=== PATIENT | female | born 1995 | race Caucasian/White ===

== ENCOUNTER 2018-12-04 01:42 | Emergency (ER) | payer OTHER ==
[~2018-12-04] VITALS: Ht 157 cm; Wt 89.5 kg
[2018-12-04] MEDS ORDERED: LACTATED RINGERS 1,000 ML IV ONE (02:25)
[2018-12-04] MEDS ORDERED: ONDANSETRON 4 MG/2 ML (SDV) Z0FRAN IVP ONE (02:30)
[2018-12-04 02:31] LABS: BILIRUBIN,URINE NEGATIVE (NEGATIVE); CLARITY,URINE CLEAR; COLOR,URINE YELLOW; GLUCOSE, URINE (UA) NEGATIVE (NEGATIVE); KETONES,URINE NEGATIVE (NEGATIVE); LEUKOCYTE ESTERASE ,URINE NEGATIVE (NEGATIVE); NITRITE,URINE NEGATIVE (NEGATIVE); PH,URINE 6.5 (5-9); PROTEIN,URINE 1+ (NEGATIVE)
[2018-12-04 02:40] LABS: BACTERIA,URINE NEGATIVE /HPF; RBC,URINE 0-2 /HPF
[2018-12-04 02:50] LABS: AMPHETAMINE SCREEN, URINE NEGATIVE (NEGATIVE); BARBITURATE SCREEN URINE NEGATIVE (NEGATIVE); BENZODIAZEPINES SCREEN URINE NEGATIVE (NEGATIVE); CANNABINOID SCREEN, URINE POSITIVE (NEGATIVE); COCAINE SCREEN URINE NEGATIVE (NEGATIVE); METHADONE STAT NEGATIVE (NEGATIVE); METHAMPHETAMINE SCREEN URINE S NEGATIVE (NEGATIVE); OPIATE SCREEN URINE NEGATIVE (NEGATIVE); OXYCODONE STAT NEGATIVE (NEGATIVE); PROPOXYPHENE STAT NEGATIVE (NEGATIVE); TRICYCLIC ANTIDEPRESSANTS SCRE NEGATIVE (NEGATIVE)
--- NOTE | 2018-12-04 02:50 | NUR ---
DURING TRIAGE PT DENIED RECREATIONAL DRUG USE, INCLUDING MARIJUANA. DURING PLACEMENT OF IV, THE MOTHER OF THE PT STATES, "I KNOW SHE TOLD YOU SHE DIDN'T SMOKE POT, BUT I TOLD HER TO BE HONEST AND TELL THE DOCTOR THE TRUTH. SO I JUST WANT TO APOLOGIZE". THE MOTHER APOLOGIZED MULTIPLE TIMES DURING IV INSERTION AND MEDICATION ADMINISTRATION AND STATED, "WE AREN'T LIARS, SO I JUST WANTED TO SAY SORRY FOR NOT HER NOT TELLING THE TRUTH." PT ALSO APOLOGIZED FOR NOT BEING FORTHCOMING ABOUT MARIJUANA USE. MOTHER AT BEDSIDE APPEARS VERY ANXIOUS ALSO NOTED TO INTERJECT AND ANSWER QUESTIONS BEFORE THE PT HAS THE CHANCE TO ANSWER.
--- NOTE | 2018-12-04 02:55 | ED GI ---
General Chief Complaint: Abdominal/GI Problems Stated Complaint: VOMITING; DIAHRREA Nursing Triage Note: AMBULATORY TO ED ROOM 6 WITH C/O ABD PAIN. PT STATES N/V/D X6 MONTHS, BRAND[place] 3 MONTHS AGO IN [place], [place]. STATES HAS GONE TO HOSPITAL 4 TIMES IN THE LAST MONTH IN [place] (WHERE SHE LIVES) FOR SAME SYMPTOMS AND BEEN DIAGNOSED WITH COLITIS, IBS AND THEN C DIFF FROM TAKING MANY ANTIBIOTICS. HAS NOT SEEN A PCP. HAS APPT 02/08 WITH SPECIALIST IN [place]. MOTHER AT BEDSIDE AND ANSWERING QUESTIONS WITH PT. Sepsis Screen: No Definite Risk Source of Information: Patient, Family (MOM) History of Present Illness Date Seen by Provider: Dec 04, 2018 Time Seen by Provider: 02:20 Initial Comments PT ARRIVES VIA POV WITH MOM AND A MALE PT STATES SHE HAS HAD NAUSEA/VOMITING/DIARRHEA AND ABDOMINAL PAIN FOR 6 MONTHS PT STATES SHE "CAN'T KEEP ANYTHING DOWN" FOR THE LAST 6 MONTHS STATES SHE HAS VOMITED X 5-6 TODAY, AND HAS HAD DIARRHEA AT LEAST 10 TIMES TODAY NO BLACK/BLOODY/TARRY STOOLS STATES SHE HAS A CONSTANT PAIN ON THE LEFT SIDE OF HER ABDOMEN--STATES IT IS CONSTANT AND DULL AND SHARP SOMETIMES, AND IT DOESN'T GO AWAY, LATER STATES PAIN IS IN DIFFERENT AREAS OF ABDOMEN AT DIFFERENT TIMES. STATES IT IS IN LEFT UPPER ABDOMEN NOW. NO FEVER NO URINARY PROBLEMS AND IS VOIDING A NORMAL NUMBER OF TIMES SYMPTOMS ARE NO DIFFERENT TODAY/TONIGHT IN ANY WAY PT CAME HERE FROM [place] AND MOM BROUGHT HER HERE "BECAUSE NO ONE CAN FIGURE OUT WHAT'S WRONG WITH HER" PT HAS BEEN TO A MULTITUDE OF FACILITIES, SEEN A MULTITUDE OF DIFFERENT PHYSICIANS, AND HAD A MULTITUDE OF TESTS FOR THIS PROBLEM PT STATES SHE HAS BEEN TO 4 DIFFERENT HOSPITALS IN THE LAST MONTH FOR THIS PROBLEM, INCLUDING BOTH [facility] IN [place] AND [facility] IN [place] IN THE LAST MONTH--ALL FOR THIS SAME COMPLAINT. HAS BEEN TO MULTIPLE FACILITIES IN [facility] STATES SHE WAS HOSPITALIZED IN [facility] FOR 2 WEEKS, ABOUT 4 MONTHS AGO, FOR THIS PROBLEM, SHE EVENTUALLY HAD HER GALLBLADDER REMOVED ABOUT 4 MONTHS AGO, IN HOPES OF RELIEVING HER SYMPTOMS. PT STATES SHE HAD EGD AND COLONOSCOPY IN [place], WHICH WAS REPORTEDLY NORMAL. PT STATES HER SYMPTOMS HAVE NOT GOTTEN ANY BETTER SINCE SHE HAD HER GALLBLADDER OUT. PT STATES SHE HAS SINCE MOVED TO [place] AND HAS BEEN SEEN MULTIPLE TIMES AT LOCAL ER'S IN THAT AREA. PT STATES SHE HAS NOT BEEN ADMITTED TO THE HOSPITAL SINCE SHE WAS AT [place]. HAS BEEN SEEN IN ER AND THEN SENT HOME. SHE STATES THAT A COUPLE OF WEEKS AGO, SHE WAS DX WITH C. DIFFICILE AND PRESCRIBED VANCOMYCIN ON 11/20/18--PT HAS NOT BEEN TAKING IT, STATING SHE "CAN'T KEEP IT DOWN" PT STATES SHE HAS BEEN REFERRED TO GI SPECIALIST IN [place], AND HAS AN APPOINTMENT 02/08/19--DOES NOT KNOW NAME OF OR WHICH HOSPITAL SYSTEM HE IS WITH. STATES THE LAST TIME SHE WAS SEEN WAS A WEEK AGO AT [facility] IN [place]. STATES SHE ALSO TESTED + FOR C. DIFFICILE AT THAT TIME ( HAD ALREADY BEEN DX A COUPLE OF WEEKS AGO, AND PRESCRIBED MEDICATION, BUT HAD NOT BEEN TAKING IT) PT STATES SHE HAS BEEN DX WITH COLITIS, IBS, WELL THE C. DIFFICILE AT VARIOUS FACILITIES PT HAS NOT ATTEMPTED TO ESTABLISH WITH PCP ANYWHERE, JUST KEEPS GOING TO MULTIPLE ER'S AND NOT FOLLOWING UP WITH ANYONE. PT HAS BEEN PRESCRIBED A MULTITUDE OF GI MEDICATIONS, STATES SHE "CAN'T KEEP THEM DOWN" HAS BEEN PRESCRIBED: OMPRAZOLE ON 08/08/18--NOT TAKING HYOSCYAMINE 0.125 MG ON 11/04/18 PROMETHAZINE 25 MG ON 11/04/18 DICYCLOMINE ON 11/16/18 PROCHLORPERAZINE 10 MG TABS ON 11/16/18 PROCHLORPERAZINE 25 MG SUPP ON 11/20/18 PROMETHAZINE 25 MG SUPP ON 11/28/18 ONDANSETRON 4 MG ON 11/28/18. WAS PRESCRIBED VANCOMYCIN 11/20/18 PT ALSO ADMITS TO SMOKING MARIJUANA ON DAILY BASIS --STATES "IT'S THE ONLY THING THAT MAKES THE SYMPTOMS GO AWAY" THEN STATES SOON IT WEARS OFF, OR SHE GOES TOO LONG BETWEEN USING, ALL OF HER SYMPTOMS IMMEDIATELY COME BACK AND GET WORSE EACH TIME. Allergies and Home Medications Allergies Coded Allergies: Penicillins (Verified Allergy, Unknown, 12/04/18) STATES SHE IS NOT ALLERGIC--IS NOT SURE SHE HAS EVER EVEN HAD IT. HER DAD IS ALLERGIC TO PENICILLIN. Home Medications Lactobacillus Acidophilus 1 Each Capsule, 2 EACH PO QID Prescribed by: RAHEEL CABRERA on 12/04/18 0503 Pantoprazole Sodium 40 Mg Tablet.dr, 40 MG PO DAILY Prescribed by: RAHEEL CABRERA on 12/04/18 0505 Scopolamine 1 Each Patch.td72, 1 EACH TD Q72 HOURS Prescribed by: RAHEEL CABRERA on 12/04/18 0355 Patient Home Medication List Home Medication List Reviewed: Yes Review of Systems Review of Systems Constitutional: no symptoms reported; No dizziness, No fever, No malaise, No weakness EENTM: No Symptoms Reported Respiratory: No Symptoms Reported Cardiovascular: No Symptoms Reported Gastrointestinal: See HPI, Abdominal Pain, Diarrhea, Nausea, Poor Appetite, Poor Fluid Intake, Vomiting Genitourinary: No Symptoms Reported, Other (LMP 11/29/18--STILL ON HER PERIOD. NO CONTROL. STATES IT CAME 10 DAYS EARLY. ) Musculoskeletal: no symptoms reported Skin: no symptoms reported Psychiatric/Neurological: No Symptoms Reported Endocrine: No Symptoms Reported Hematologic/Lymphatic: No Symptoms Reported Past Bvqggff-[id number]-Mhyfcj Hx Patient Social History Alcohol Use: Denies Use Recreational Drug Use: Yes (THC DAILY) Drug of Choice: THC DAILY Smoking Status: Current Everyday Smoker (1/2 PPD) Type Used: Cigarettes Recent Foreign Travel: No Contact w/Someone Who Travel: No Recent Infectious Disease Expo: No Recent Hopitalizations: No Physical Abuse: No Sexual Abuse: No Mistreated: No Fear: No Seasonal Allergies Seasonal Allergies: No Past Medical History Surgeries: Yes (LEFT TIB/FIB FX/ORIF; EGD/ COLONOSCOPY) Gallbladder, Orthopedic Respiratory: No Cardiac: No Neurological: No : No Reproductive Disorders: No Female Reproductive Disorders: Denies Genitourinary: No Gastrointestinal: Yes (ONGOING NAUSEA/VOMITING/DIARRHEA/ABDOMINAL PAIN FOR OVER 6 MONTHS, PER PT ON 12/04/18; S/P CHOLECYSTECTOMY; DX WITH C. DIFFICILE 11/2018) Colitis, C-Diff, Gall Bladder Disease, Irritable Bowel Musculoskeletal: Yes (LEFT TIB/FIB FX/ORIF) Fractures Endocrine: No HEENT: No Cancer: No Psychosocial: No Integumentary: No Blood Disorders: No Physical Exam Vital Signs Vital Signs - First Documented 12/04/18 12/04/18 02:13 05:20 Temp 36.9 Pulse 87 Resp 18 B/P (MAP) 125/98 (107) Pulse Ox 100 O2 Delivery Room Air Capillary Refill : Less Than 3 Seconds Height/Weight/BMI Height: '" Weight: lbs. oz. kg; 36.00 BMI Method: General Appearance: no apparent distress, obese, other (WALKS UPRIGHT AND MOVES WITHOUT DIFFICULTY. SITTING UP, SRI LANKAN-STYLE, TEXTING/PLAYING ON PHONE. DOES NOT APPEAR TO BE IN ANY DISCOMFORT OR DISTRESS WHATSOEVER. 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, no motor/sensory deficits, alert, normal mood/affect, oriented x 3 Skin: normal color, warm/dry Progress/Results/Core Measures Results/Orders Lab Results Laboratory Tests Test 12/04/18 02:25 12/04/18 02:50 Range/Units Urine Color YELLOW Urine Clarity CLEAR Urine pH 6.5 5-9 Urine Specific [place] 1.015 L 1.016-1.022 Urine Protein 1+ H NEGATIVE Urine Glucose (UA) NEGATIVE NEGATIVE Urine Ketones NEGATIVE NEGATIVE Urine Nitrite NEGATIVE NEGATIVE Urine Bilirubin NEGATIVE NEGATIVE Urine Urobilinogen NORMAL NORMAL MG/DL Urine Leukocyte Esterase NEGATIVE NEGATIVE Urine RBC (Auto) 1+ H NEGATIVE Urine RBC 0-2 /HPF Urine WBC NONE /HPF Urine Squamous Epithelial Cells 10-25 H /HPF Urine Crystals NONE /LPF Urine Bacteria NEGATIVE /HPF Urine Casts NONE /LPF Urine Mucus LARGE H /LPF Urine Culture Indicated NO Urine Opiates Screen NEGATIVE NEGATIVE Urine Oxycodone Screen NEGATIVE NEGATIVE Urine Methadone Screen NEGATIVE NEGATIVE Urine Propoxyphene Screen NEGATIVE NEGATIVE Urine Barbiturates Screen NEGATIVE NEGATIVE Ur Tricyclic Antidepressants Screen NEGATIVE NEGATIVE Urine Phencyclidine Screen NEGATIVE NEGATIVE Urine Amphetamines Screen NEGATIVE NEGATIVE Urine Methamphetamines Screen NEGATIVE NEGATIVE Urine Benzodiazepines Screen NEGATIVE NEGATIVE Urine Cocaine Screen NEGATIVE NEGATIVE Urine Cannabinoids Screen POSITIVE H NEGATIVE White Blood Count 11.9 H 4.3-11.0 10^3/uL Red Blood Count 5.49 4.35-5.85 10^6/uL Hemoglobin 15.0 11.5-16.0 G/DL Hematocrit 44 35-52 % Mean Corpuscular Volume 80 80-99 FL Mean Corpuscular Hemoglobin 27 25-34 PG Mean Corpuscular Hemoglobin Concent 34 32-36 G/DL Red Cell Distribution Width 13.6 10.0-14.5 % Platelet Count 350 130-400 10^3/uL Mean Platelet Volume 10.0 7.4-10.4 FL Neutrophils (%) (Auto) 70 42-75 % Lymphocytes (%) (Auto) 21 12-44 % Monocytes (%) (Auto) 6 0-12 % Eosinophils (%) (Auto) 2 0-10 % Basophils (%) (Auto) 0 0-10 % Neutrophils # (Auto) 8.4 H 1.8-7.8 X 10^3 Lymphocytes # (Auto) 2.5 1.0-4.0 X 10^3 Monocytes # (Auto) 0.8 0.0-1.0 X 10^3 Eosinophils # (Auto) 0.2 0.0-0.3 10^3/uL Basophils # (Auto) 0.0 0.0-0.1 10^3/uL Sodium Level 138 135-145 MMOL/L Potassium Level 4.2 3.6-5.0 MMOL/L Chloride Level 103 98-107 MMOL/L Carbon Dioxide Level 24 21-32 MMOL/L Anion Gap 11 5-14 MMOL/L Blood Urea Nitrogen 11 7-18 MG/DL Creatinine 0.75 0.60-1.30 MG/DL Estimat Glomerular Filtration Rate > 60 BUN/Creatinine Ratio 15 Glucose Level 85 70-105 MG/DL Calcium Level 9.6 8.5-10.1 MG/DL Corrected Calcium 8.5-10.1 MG/DL Magnesium Level 2.0 1.6-2.4 MG/DL Total Bilirubin 0.4 0.1-1.0 MG/DL Aspartate Amino Transf (AST/SGOT) 28 5-34 U/L Alanine Aminotransferase (ALT/SGPT) 44 0-55 U/L Alkaline Phosphatase 96 40-136 U/L Total Protein 7.9 6.4-8.2 GM/DL Albumin 4.7 H 3.2-4.5 GM/DL Amylase Level 33 25-125 U/L Lipase 15 8-78 U/L Serum Alcohol < 10 <10 MG/DL My Orders Orders - RAHEEL CABRERA DO Ed Iv/Invasive Line Start (12/04/18 02:21) Urine Bedside (12/04/18 02:21) Amylase (12/04/18 02:21) Cbc With Automated Diff (12/04/18 02:21) Comprehensive Metabolic Panel (12/04/18 02:21) Lipase (12/04/18 02:21) Ua Culture If Indicated (12/04/18 02:21) Ondansetron Injection (Zofran Injectio (12/04/18 02:30) Ed Iv/Invasive Line Start (12/04/18 02:25) Lactated Ringers (Lr 1000 Ml Iv Solution (12/04/18 02:25) Alcohol (12/04/18 02:25) Drug Screen Stat (Urine) (12/04/18 02:25) Magnesium (12/04/18 02:25) Ct Abdomen/Pelvis W (12/04/18 03:09) Acute Abd Series (12/04/18 03:09) Iohexol Injection (Omnipaque 350 Mg/Ml 1 (12/04/18 04:00) Ns (Ivpb) (Sodium Chloride 0.9% Ivpb Bag (12/04/18 04:00) Ketorolac Injection (Toradol Injection) (12/04/18 05:00) Medications Given in ED Current Medications Medications Dose Ordered Sig/Alysa Route Start Time Stop Time Status Last Admin Dose Admin Iohexol 80 ml ONCE ONCE IV 12/04/18 04:00 12/04/18 04:54 DC 12/04/18 03:58 80 ML Ketorolac Tromethamine 30 mg ONCE ONCE IVP 12/04/18 05:00 12/04/18 05:01 DC 12/04/18 05:05 30 MG Lactated Ringer's 1,000 ml @ 0 mls/hr Q0M ONCE IV 12/04/18 02:25 12/04/18 02:27 DC 12/04/18 02:53 999 MLS/HR Ondansetron HCl 4 mg ONCE ONCE IVP 12/04/18 02:30 12/04/18 02:31 DC 12/04/18 02:53 4 MG Sodium Chloride 50 ml ONCE ONCE IV 12/04/18 04:00 12/04/18 04:54 DC 12/04/18 03:58 50 ML Vital Signs/I&O 12/04/18 12/04/18 02:13 05:20 Temp 36.9 36.9 Pulse 87 72 Resp 18 18 B/P (MAP) 125/98 (107) 118/68 (107) Pulse Ox 100 O2 Delivery Room Air Room Air Blood Pressure Mean: 107 Progress Progress Note : Progress Note NO VOMITING OR DIARRHEA DURING ENTIRE ER STAY DID NOT COMPLAIN OF PAIN, UNTIL SHORTLY PRIOR TO DISMISSAL--WANTING PAIN MED ICATION BEFORE SHE LEAVES ALSO STATES SHE IS HERE FOR A WORK NOTE, SHE DID NOT GO TO WORK YESTERDAY ( SHE CAME HERE TO [place] INSTEAD) AND WILL NOT BE GOING TO WORK TODAY EITHER, SHE IS GOING TO STAY HERE IN [place] TODAY. PT SITTING UPRIGHT SRI LANKAN-STYLE, PLAYING/TEXTING ON PHONE DURING ER STAY. PT WALKS UPRIGHT AND MOVES QUICKLY AND DOES NOT APPEAR TO BE IN ANY DISCOMFORT OR DISTRESS AT ANY TIME. DISCUSSED WITH PT THE IMPORTANCE OF ESTABLISHING WITH A PRIMARY CARE DR, AND PREFERABLY ONE THAT IS IN SAME HOSPITAL SYSTEM THAT THE GI DR. SHE HAS BEEN REFERRED TO. PT ADVISED THAT SHE SHOULD STICK WITH ONE HOSPITAL SYSTEM, SHE HAS HAD A MULTITUDE OF RADIOLOGICAL STUDIES, INCLUDING CT SCANS, BECAUSE SHE HAS GONE TO A MULTITUDE OF DIFFERENT FACILITIES, THAT DO NOT HAVE ACCESS TO ANY TESTS DONE AT OTHER FACILITIES. STRONGLY ADVISED OF RISKS OF RADIATION EXPOSURE WITH EACH CT SCAN SHE GETS. AND INCREASED RISK FOR CANCERS LATER IN LIFE DUE TO THIS. PT ADVISED OF THE IMPORTANCE OF TAKING HER VANCOMYCIN EXACTLY PRESCRIBED, AND NOT MISS DOSES. ALSO ADVISED OF NEED FOR FOLLOW UP WITH SPECIALIST OR PRIMARY CARE TO RECHECK STOOLS AT THE END OF TREATMENT TO CHECK FOR CLEARING OF INFECTION. EXPLAINED RISKS, COMPLICATIONS IF C. DIFFICILE INFECTION IS NOT TREATED COMPLETELY. ALSO EXPLAINED THAT IT COULD BE CONTAGIOUS TO OTHER PEOPLE WELL. ALSO DISCUSSED WITH PT AND MOM AND MALE IN ROOM, THAT SOME OF HER SYMPTOMS MAY BE CAUSED OR WORSENED BY HER MARIJUANA USE, AND EXPLAINED THAT SHE NEEDED TO STOP USING IT COMPLETELY. THEY ARE NOT WILLING TO BELIEVE THAT HER SYMPTOMS COULD BE CAUSED BY MARIJUANA. EXPLAINED TO THEM THAT SHE HAS TESTED + FOR C. DIFFICILE, THAT HER SYMPTOMS ARE NOT COMPLETELY DUE TO THC USE, BUT COULD BE WORSENED BY IT. ALSO EXPLAINED THE IMPORTANCE OF GI FOLLOW UP FOR FURTHER EVALUATION, SHE MAY NEED TO HAVE ANOTHER EGD AND COLONOSCOPY AT SOME POINT, AFTER HER C. DIF INFECTION HAS CLEARED, IF HER SYMPTOMS DO NOT IMPROVE. Diagnostic Imaging Comments ABDOMEN XRAYS--NO ACUTE PROCESS, PENDING RADIOLOGIST REVIEW CT ABDOMEN/PELVIS-NONSPECIFIC MILD SEGMENTAL WALL THICKENING OF COLON AND SMALL BOWEL LOOPS. NO OBSTRUCTION, OR OTHER ACUTE PROCESS, PER [facility] VIA FAX AT [id number] Reviewed: Reviewed by Me Departure Impression Primary Impression: NAUSEA, VOMITING, DIARRHEA AND ABDOMINAL PAIN-CHRONIC Additional Impressions: Cannabis use with cannabis-induced disorder Cannabinoid hyperemesis syndrome RECENT DX OF C. DIFFICILE Disposition: HOME, SELF-CARE Condition: Stable Departure-Patient Inst. Referrals: NO,LOCAL PHYSICIAN (PCP/Family) Primary Care Physician Patient Instructions: Acute Abdomen (Belly Pain), Adult (DC), Clostridium difficile (DC), Marijuana Use and Addiction (DC), Nausea and Vomiting, Adult (DC) Add. Discharge Instructions: CLEAR LIQUIDS--WATER, BROTH, JELLO, GATORADE WHEN YOUR NAUSEA IS BETTER, ADD BRATS DIET TO CLEAR LIQUIDS--BANANAS, RICE, APPLESAUCE, TOAST, SALTINES TAKE ZOFRAN AND PHENERGAN SUPPOSITORIES NEEDED FOR NAUSEA, AND TAKE HYOSCYAM INE AND DICYCLOMINE NEEDED FOR ABDOMINAL PAIN TAKE YOUR VANCOMYCIN EXACTLY PRESCRIBED. DO NOT MISS DOSES OF MEDICATION FOLLOW UP WITH GI SPECIALIST SCHEDULED ESTABLISH WITH A LOCAL FAMILY DR IN THE TOWN WHERE YOU LIVE FOR FURTHER CARE, AT THE SAME HOSPITAL SYSTEM YOUR GI SPECIALIST. All discharge instructions reviewed with patient and/or family. Voiced understanding. Scripts Lactobacillus Acidophilus (Acidophilus) 1 Each Capsule 2 EACH PO QID, #80 CAP Prov: RAHEEL CABRERA DO 12/04/18 Pantoprazole Sodium (Protonix) 40 Mg Tablet. 40 MG PO DAILY, #15 TAB Prov: RAHEEL CABRERA DO 12/04/18 Scopolamine (Transderm-Scop) 1 Each Patch.td72 1 EACH TD Q72 HOURS for Dizziness, #3 PATCH Prov: RAHEEL CABRERA DO 12/04/18 Work/School Note: Work Release Form Date Seen in the Emergency Department: Dec 04, 2018 Return to Work: Dec 05, 2018 Restrictions: No Restrictions RAHEEL CABRERA DO Dec 04, 2018 02:55
[2018-12-04 03:06] LABS: BASOPHILS % (AUTO) 0 % (0-10); EOSINOPHILS # (AUTO) 0.2 10^3/uL (0.0-0.3); EOSINOPHILS % (AUTO) 2 % (0-10); HEMATOCRIT 44 % (35-52); LYMPHOCYTES # (AUTO) 2.5 X 10^3 (1.0-4.0); LYMPHOCYTES % (AUTO) 21 % (12-44); MEAN CORPUSCULAR HEMOGLOBIN 27 PG (25-34); MEAN CORPUSCULAR HGB CONC 34 G/DL (32-36); MEAN CORPUSCULAR VOLUME 80 FL (80-99); MONOCYTES # (AUTO) 0.8 X 10^3 (0.0-1.0); MONOCYTES % (AUTO) 6 % (0-12); NEUTROPHILS # (AUTO) 8.4 X 10^3 (1.8-7.8); NEUTROPHILS % (AUTO) 70 % (42-75); PLATELET COUNT 350 10^3/uL (130-400); RED CELL DISTRIBUTION WIDTH 13.6 % (10.0-14.5); WHITE BLOOD COUNT 11.9 10^3/uL (4.3-11.0)
[2018-12-04 03:28] LABS: ALANINE AMINOTRANSFERASE 44 U/L (0-55); ALBUMIN 4.7 GM/DL (3.2-4.5); ALKALINE PHOSPHATASE 96 U/L (40-136); AMYLASE 33 U/L (25-125); BILIRUBIN,TOTAL 0.4 MG/DL (0.1-1.0); BUN/CREATININE RATIO 15; CALCIUM 9.6 MG/DL (8.5-10.1); CARBON DIOXIDE 24 MMOL/L (21-32); CHLORIDE 103 MMOL/L (98-107); CREATININE SERUM 0.75 MG/DL (0.60-1.30); GFR ESTIMATED > 60; GLUCOSE 85 MG/DL (70-105); LIPASE 15 U/L (8-78); POTASSIUM 4.2 MMOL/L (3.6-5.0); SODIUM 138 MMOL/L (135-145); TOTAL PROTEIN 7.9 GM/DL (6.4-8.2)
[2018-12-04] MEDS ORDERED: SCOP1PAT11 TD (03:55)
[2018-12-04] MEDS ORDERED: IOHEXOL 350 MG/ML 100 ML (OMNIPAQUE 350) VIAL IV ONE (04:00)
[2018-12-04] MEDS ORDERED: NS 100 ML (IVPB) BAG IV ONE (04:00)
[2018-12-04] MEDS ORDERED: KETOROLAC 30 MG/ML VIAL IVP ONE (05:00)
[2018-12-04] MEDS ORDERED: PANT40TA2 PO (05:05)
[2018-12-04] MEDS ORDERED: LACT1CAP8 PO (05:05)
[2018-12-04 05:20] VITALS: BP 118/68
--- NOTE | 2018-12-04 08:14 | Diagnostic Imaging Report ---
EXAMINATION: CT Abdomen and Pelvis with intravenous contrast. TECHNIQUE: Multiple contiguous axial images were obtained through the abdomen and pelvis after the uneventful administration of intravenous contrast. All CT scans use one or more of the following dose optimizing techniques: automated exposure control, MA and/or KvP adjustment based on a patient size and exam type, or iterative reconstruction. HISTORY: Abdominal pain. COMPARISON: 04/18/2018 FINDINGS: Limited views of the lower thorax are unremarkable. The liver is normal without focal lesion. There is no biliary ductal dilation. Gallbladder is surgically absent. Pancreas is normal. Spleen is normal. Adrenal glands are normal. The kidneys are normal. There is no hydronephrosis. Urinary bladder is normal. There are no dilated loops of large or small bowel. No obstruction or inflammation. No free fluid or air. No abdominal or pelvic lymphadenopathy. Aorta is normal in caliber without aneurysm. There are no suspicious osseous lesions. IMPRESSION: 1. No acute abnormality in the abdomen or pelvis. Dictated by: Dictated on workstation # [id number]
--- NOTE | 2018-12-04 08:25 | Diagnostic Imaging Report ---
EXAMINATION: Abdominal series and chest radiograph HISTORY: Abdominal pain FINDINGS: No comparison available. Cholecystectomy clips are seen in the right upper quadrant. No free air is seen. No dilated bowel. The lungs are clear. No edema. No pneumonia. No pleural effusion. No pneumothorax. Heart is normal in size. IMPRESSION: 1. Clear lungs. 2. Normal bowel gas pattern. Dictated by: Dictated on workstation # [id number]
== END 2018-12-04 05:21 | disposition home or self-care (01) ==
LOC: EDUNIT# 01:42 → ER 01:46
DX: G89.29 Other chronic pain (principal); R10.9 Unspecified abdominal pain; R11.2 Nausea with vomiting, unspecified; R19.7 Diarrhea, unspecified; F12.288 Cannabis dependence with other cannabis-induced disorder; K58.9 Irritable bowel syndrome, unspecified; F17.210 Nicotine dependence, cigarettes, uncomplicated; Z86.19 Personal history of other infectious and parasitic diseases; Z88.0 Allergy status to penicillin; Z90.49 Acquired absence of other specified parts of digestive tract
CPT/HCPCS: 36415; 74022; 74177; 80053; 80306; 80320; 81000; 82150; 83690; 83735; 84703; 85025